=== PATIENT | female | born 1935 | race Caucasian/White ===

== ENCOUNTER 2018-05-03 14:38 | Inpatient (IN) | payer MEDICARE, OTHER | END 2018-05-06 16:50 | disposition home or self-care (01) | LOC: ER 14:38 → ED HOLD 16:54 → PCU 3S 23:39 | PROC: 4A023N7 Measurement of Cardiac Sampling and Pressure, Left Heart, Percutaneous Approach (ICD-10-PCS; principal; ~2018-05-03) | PROC: B215YZZ Fluoroscopy of Left Heart using Other Contrast (ICD-10-PCS; ~2018-05-03) | PROC: B211YZZ Fluoroscopy of Multiple Coronary Arteries using Other Contrast (ICD-10-PCS; ~2018-05-03) | DX: I20.9 Angina pectoris, unspecified (principal); J20.8 Acute bronchitis due to other specified organisms; I25.119 Atherosclerotic heart disease of native coronary artery with unspecified angina pectoris; I10 Essential (primary) hypertension; Z95.1 Presence of aortocoronary bypass graft; I25.2 Old myocardial infarction ==